=== PATIENT | female | born 1930 | race Caucasian/White ===

== ENCOUNTER 2017-07-15 12:29 | Inpatient (IN) | payer MEDICARE, BC ==
--- NOTE | 2017-07-15 15:48 | Rehab Evaluation ---
Patient Information - Patient Information Diagnosis: deconditioning d/t gastric ulcer and upper GI bleed Ordered Treatment: OT Evaluate and Treat Status: Initial Evaluation History: Detail (Pt admitted from [facility] to the [facility].) Past Medical/Surgical Hx: PAST MEDICAL/SURGICAL HISTORY Past Surgical History breast cancer knee kidney stents PMH - Respiratory Hx Respiratory Disorders No PMH - Cardiovascular Hx Cardiovascular Disorders Yes Hx Abnormal EKG Yes Hx Heart Attack Yes Hx Hypertension Yes Hx Hypotension Yes PMH - Neuro Hx Neurological Disorders Yes Hx Dementia Yes PMH - GI Hx Gastrointestinal Disorders No PMH - Hx Genitourinary Disorders No PMH - Endocrine Hx Endocrine Disorders No PMH - Musculoskeletal Hx Musculoskeletal Disorders Yes Hx Arthritis Yes PMH - Psych Hx Psychiatric Problems Yes Hx Depression Yes PMH - Hematology/Oncology Hx Hematology/Oncology Yes Disorders Hx Cancer Yes: breast Premorbid Status: Detail (Per pt and family, she lives with daughter and son in law in a 1 story house with 2 steps and syed handrailings at the entrance. She has a tub/shower combination with a bench, grab bar and hand held shower. She was able to shower and dress with supervision and was Ind with making her bed. She did have increased difficulty in the evenings due to "sundowners". Family is responsible for all home mgmt, meal prep, laundry activities. She was ambulatory without an assistive device.) Social History: Detail (Supportive family present during evaluation, daughters Berkely and Akilah and son in law Zaki.) Precautions: [place], Fall, Other (decreased cognition) - Time With Patient Total Time Spent With Patient (Min): 45 Treatment Procedures: Detail (OT eval moderate complexity) Subjective Information - Subjective Information Per Patient, Other (per family present during evaluation) Objective Data - Pain Pain Present: Yes (left knee pain, pt unable to rate pain using pain scale) - Mental Status Patient Orientation: Person (Pt oriented to self, month/day of birthday. Not oriented to year of birthday, age, location (states "hospital", not sure which one), month, season or year. Pt demonstrates confusion with dressing and mobility activities, requires moderate cueing.) - Visual Perception Appears within normal limits for therapeutic activities (Pt wears glasses at all times, pt had eyes closed throughout most of evaluation.) - ROM Within normal limits (Syed UE AROM functional for patients age and premorbid status.) - Strength/Tone Not within normal limits (Syed UE MMT 4-/5 throughout.) - Coordination Appears within normal limits for therapeutic activities (Syed UE tremors noted with activity, family reports this is new.) - Bed Mobility Needs Assist (Supine to sit with mod assist x 2.) - Transfers Needs Assist (Sit to stand with max assist x 2.) - Balance Balance Sitting: Fair Balance Standing: Poor - Sensation Intact - Gait Detail (Unable to formally assess due to left knee pain.) - ADL's/IADL's Detail (Pt able to doff gown with mod assist, don bra with max assist to hook and pull around body, verbal cues required to pull straps over shoulders. Donned shirt with set up. Nursing reports patient is incontinent.) Therapy Assessment - Therapy Assessment Detail (Pt presents with significant endurance impairments, decreased Ind with dressing/showering/toileting, decreased functional mobility and decreased cognition.) Problem List - Problem List Occupational Therapy Problem List: Detail (1. Decreased cognition needed for Ind self cares 2. Decreased functional mobility 3. Decreased Ind with dressing 4. Decreased Ind with showering 5. Decreased UE strength and overall endurance needed for Ind self cares.) Goals - Goals Occupational Therapy Goals: 1. Pt will be alert and oriented to place. 2. Pt will be Ind with total body dressing 3. Pt will complete showering with supervision and with set up 4. Pt will be Ind with bed mobility and ambulating in room to allow Ind with self cares 5. Pt will improve endurance to allow Ind with self cares. Prognosis - Prognosis Moderate Plan - Plan Occupational Therapy Plan: OT 2-4 days per week to address cognition, UE function, endurance, self care activities and functional mobility to allow safe return home with family.
[2017-07-15 16:10] LABS: BASO % 0.2 % (0-6); EOS % 0.3 % (0-6); GRAN % 74.3 % (47-80); HEMATOCRIT 27.3 % (35.0-47.0); HEMOGLOBIN 8.9 gm/dl (11.6-16.0); LYMPH % 16.4 % (16-45); MEAN CELL VOLUME 95.8 fl (81-97); MEAN CORPUSCULAR HEMOGLOBIN 31.2 pg (27-33); MEAN CORPUSCULAR HGB CONC 32.6 g/dl (32-36); MEAN PLATELET VOLUME 9.2 fl (7.4-10.4); MONO % 8.8 % (0-9); PLATELET COUNT 288 K/uL (130-400); RED BLOOD COUNT 2.85 M/uL (3.80-5.40); RED CELL DISTRIBUTION WIDTH 15.1 % (11.5-14.5); WHITE BLOOD COUNT W/O DIFF 15.3 K/uL (4.2-12.2)
[2017-07-15 16:31] LABS: ANION GAP 6.2 (7-16); C-REACTIVE PROTEIN 2.8 mg/dL (0.0-0.9); CARBON DIOXIDE 22.8 mmol/L (22-30); CREATININE 1.1 mg/dL (0.52-1.04)
[2017-07-15] MEDS: PANTOPRAZOLE SODIUM 40 MG TABLET PO SCH (16:43)
--- NOTE | 2017-07-15 17:01 | Rehab Evaluation ---
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 She has a tub/shower combination with a bench, grab bar and hand held shower. She was able to shower and dress with supervision and was Ind with making her bed. She did have increased difficulty in the evenings due to "sundowners". Family is responsible for all home mgmt, meal prep, laundry activities. She was ambulatory without an assistive device.) Social History: Detail (Supportive family present during evaluation, daughters Berkley and Akilah and son in law Zaki.) Precautions: [place], Fall, Other (decreased cognition) - Time With Patient Total Time Spent With Patient (Min): 30 Treatment Procedures: Detail (Initial Evaluation) Subjective Information - Subjective Information Per Patient (The patient had complaints of L knee pain with movement and when attempting to stand.) Objective Data - Mental Status Patient Orientation: Person (The patient did not know place, or year of . The patient knew month and date of birthday. The patient was able to indentify family members.) - ROM Not within normal limits (The patient's LE AROM was WNL except for L knee flexion and extension were painful and not fully assessed.) - Strength/Tone Not within normal limits ( LE strength: The patient's hip flexors bilaterally were 3/5, hip abductors and adductors were 4-/5, R knee flexors and extensors 4/ 5, L Not tested due to pain complaints, ankle musculature was 4+ to 5/5. Refer to OT note for UE strength.) - Bed Mobility Needs Assist (The patient required mod PA of 2 with supine to and from sit. The patient required maximal PA with scooting up in bed and with a seated scoot. ) - Transfers Needs Assist (Maximal PA of 2 with sit to stand transfer. Patient complained of L knee pain with standing.) - Balance Balance Sitting: Fair (Patient leaned back with activity ie : putting on her shirt.) Balance Standing: Poor - Gait Detail (The patient did not ambulate due to complaints of L knee pain.) - Special Tests Yes ( Inspection: The patient's L knee was warm to touch and exhibited edema. Family reported this was new.) Therapy Assessment - Therapy Assessment Detail (The patient required moderate to maximal assist for mobility and was unable to ambulate due to Knee pain. RN's notified physician of onset of knee pain. Pt is also running a temperature.) Problem List - Problem List Physical Therapy Problem List: Detail (1) Assistance with transfers and bed mobility. 2) nonambulatory 3) L knee pain 4) Cognitive status 5) sitting and standing balance deficits) Occupational Therapy Problem List: Detail (1. Decreased cognition needed for Ind self cares 2. Decreased functional mobility 3. Decreased Ind with dressing 4. Decreased Ind with showering 5. Decreased UE strength and overall endurance needed for Ind self cares.) Goals - Goals Physical Therapy Goals: 1) The patient will acheive bed mobility with minimal PA to supervision. 2) Supervision with sit to stand transfer. 3) Ambulation without device 30 to 50 feet with supervision of 1. 4) Functional sitting and standing balance ie: Patient will acheive ADL's with out LOB when sitting and ambulate household distances without LOB. Occupational Therapy Goals: 1. Pt will be alert and oriented to place. 2. Pt will be Ind with total body dressing 3. Pt will complete showering with supervision and with set up 4. Pt will be Ind with bed mobility and ambulating in room to allow Ind with self cares 5. Pt will improve endurance to allow Ind with self cares. Prognosis - Prognosis Good, Moderate Plan - Plan Physical Therapy Plan: PT M-F 1 to 2 times a day for bed mobility, transfer training, gait training and balance exercies. Occupational Therapy Plan: OT 2-4 days per week to address cognition, UE function, endurance, self care activities and functional mobility to allow safe return home with family.
[2017-07-15 17:42] LABS: SYNOVIAL FLUID APPEARANCE CLOUDY
[2017-07-15 17:52] LABS: SPECIMEN SOURCE LT KNEE ASPIRATION
[2017-07-15 17:53] LABS: GRAM STAIN NO ORGANISMS SEEN
[2017-07-15] MEDS: ACETAMINOPHEN 325 MG TAB PO PRN (17:58)
[2017-07-15 21:59] LABS: CRYSTALLOID MATERIAL Present
[2017-07-15] MEDS: DONEPEZIL HCL 5 MG TABLET PO SCH (22:08)
[2017-07-15] MEDS: LATANOPROST 0.005% OPTH SOLUTION 2.5ML BOTTLE OPTH SCH (22:09)
[2017-07-16] MEDS: PANTOPRAZOLE SODIUM 40 MG TABLET PO SCH ×2 (06:32→21:12)
[2017-07-16] MEDS: LEVOTHYROXINE SODIUM 75 MCG TABLET PO SCH (06:32)
[2017-07-16] MEDS: FERROUS SULFATE 325 MG TAB PO SCH (10:59)
[2017-07-16] MEDS: CIPROFLOXACIN HCL 500 MG TABLET PO SCH ×2 (10:59→21:12)
[2017-07-16] MEDS ORDERED: METHYLPREDNISOLONE 80MG/VIAL IM ONE (12:44)
--- NOTE | 2017-07-16 12:46 | Physical Therapy Tx Note ---
Physical Therapy Tx Note - Treatment Note Tolerated: Fair (Pt. tolerated bed exercises while supine with little difficulty , but could not stand to use commode due to knee pain (08/25).) Total Time Spent With Patient: 60 Physical Therapy Tx Note: Detail (Pt. performed the following exercises supine: B hip abduction 10x3, heel slides 10x3, ankle pumps 10x3. Pt. required moderate assist with bed mobility. Pt. attempted to stand for two trials with max assist for sit to stand transfer, and quickly requested to sit due to knee pain. Commode attempt unsuccessful due to knee pain. Pt. was unsuccessful with void attempt while supine with bed baires. Pt. required consistent verbal and tacticle cues to perform heel slides with appropriate LE, as well as position her UE and torso during bed mobility. Pt. was left supine with call light available, dressings changed, and nursing was notified of pt.'s status.) Physical Therapy Problem List: Detail (1) Assistance with transfers and bed mobility. 2) nonambulatory 3) L knee pain 4) Cognitive status 5) sitting and standing balance deficits) Physical Therapy Goals: 1) The patient will acheive bed mobility with minimal PA to supervision. 2) Supervision with sit to stand transfer. 3) Ambulation without device 30 to 50 feet with supervision of 1. 4) Functional sitting and standing balance ie: Patient will acheive ADL's with out LOB when sitting and ambulate household distances without LOB. Prognosis: Moderate Physical Therapy Plan: PT M-F 1 to 2 times a day for bed mobility, transfer training, gait training and balance exercies.
--- NOTE | 2017-07-16 12:52 | History & Physical ---
History of Present Illness - Date Date of Service for History & Physical: 07/16/17 - History of Present Illness Admitting Diagnosis: 1. deconditioning d/t gastric ulcer and upper GI bleed. fever. painful left knee. left knee effusion. UTI. dementia. DNR. Pseudogout of left knee. history of hypothyroidism History of Present Illness: Patient admitted to [facility] with melanotic stools and low hg 8.5 which dropped to 6.5 gm and she was given two units of blood and she had an EGD which showed a clean gastric ulcer in the antrum. Patient sent to [facility] for rehab. Upon arrival at [facility] she had a fever of 101. and a warm painful left knee with an effusion. Because of these finding on her initial assesment Blood was drawn and arthrocentisis was done on the left knee showing yellow cluody fluid 20 ml removed. UA also obtained by femicath and cluody and odiferous. General - Cognitive Patterns Orientation: Person, Recognizes Familiar Faces or Places Orientation Comment: unable to state year, month, president, season or what hospital she is loca - Communication Preferred Language?: [place] Child Support Agent Required: No Level of Education: College Comprehension Ability: Impairment Able to Read: No Able to Write: Yes Select best description of speech pattern: Clear Speech Ability to express ideas and wants: Sometimes Understood Understanding verbal content: Sometimes Understands - Psychosocial Well-Being Usual Living Arrangement: Children - Physical Functioning Activity Level: Up with assist x1 Turning: Self ad hao ROM Ability: Moves all extremities Assistive Devices: 2 Wheel Walker Ambulation Ability: Needs Assist Bed Mobility: Needs Assist Transfer Ability: Needs Assist Bathing Ability: Needs Assist Personal Hygiene: Needs Assist Dressing Ability: Needs Assist Eating (Feeding) Ability: Needs Assist Toileting Ability: Needs Assist Administer Own Medication: Needs Assist - Continence Bladder Pattern: Due to Void - Dental Status Unable to examine: No Broken or loosely fitting full or partial dentures: No No natural teeth or tooth fragment(s) (edentulous): No Abnormal mouth tissue (ulcers, masses, oral lesions, etc.): No Obvious or likely cavity or broken natural teeth: No Inflamed or bleeding gums or loose natural teeth: No Mouth/facial pain, discomfort or difficulty chewing: No - Nutrition Screening Poor oral intake > 1 week: No Unplanned weight loss in specified time frame: No Nutrition Support via tube feedings or parenteral nutrition: No Pressure Ulcer: No Significantly underweight define as BMI <18.5 kg/m2: No Albumin <2.5mg/dL: No Persistent nausea/vomiting/diarrhea >3 days: No Difficulty chewing/swallowing/mouth sores: No Admitting Diagnosis: Yes Nutrition Risk Score: Low Risk Review of Systems Constitutional: Reports: Fever Eyes: Reports: As per HPI. Denies: Eye discharge, Eye pain, Photophobia, Vision change ENT: Reports: As per HPI. Denies: Congestion, Dental pain, Ear pain, Epistaxis , Hearing loss, Throat pain Respiratory: Reports: As per HPI. Denies: Cough, Dyspnea, Hemoptysis, Stridor, Wheezes Cardiovascular: Reports: As per HPI. Denies: Arrhythmia, Chest pain, Dyspnea on exertion, Edema, Murmurs, Orthopnea, Palpitations, Paroxysmal nocturnal dyspnea, Rheumatic Fever, Syncope Endocrine: Reports: As per HPI. Denies: Fatigue, Heat or cold intolerance, Polydipsia, Polyuria Gastrointestinal: Reports: As per HPI. Denies: Abdominal pain, Constipation, Diarrhea, Hematemesis, Hematochezia, Melena, Nausea, Vomiting Genitourinary: Reports: As per HPI. Denies: Abnormal menses, Discharge, Dyspareunia, Dysuria, Frequency, Hematuria, Incontinence, Retention, Urgency Musculoskeletal: Reports: Gout (history of gout found when the right knee replaced by Dr. Harris years ago), Joint swelling. Denies: Arthralgia, Back pain , Neck pain Skin: Reports: As per HPI. Denies: Bruising, Change in color, Change in hair/ nails, Lesions, Pruritus, Rash Neurological: Reports: As per HPI, Other (dementia). Denies: Abnormal gait, Confusion, Headache, Numbness, Paresthesias, Seizure, Tingling, Tremors, Vertigo , Weakness Psychiatric: Reports: As per HPI. Denies: Anxiety, Auditory hallucinations, Depression, Homicidal thoughts, Suicidal thoughts, Visual hallucinations Hematological/Lymphatic: Reports: As per HPI. Denies: Anemia, Blood Clots, Easy bleeding, Easy bruising, Swollen glands Past Medical History - SOCIAL HISTORY Smoking Status: Former smoker - SURGICAL HISTORY Past Surgical History: breast cancer. knee. 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% - NEURO Hx Neuro Disorders: Yes Hx Dementia: Yes - GI Hx GI Disorders: No - Hx Genitourinary Disorders: No Comment:: renal stents - ENDOCRINE Hx Endocrine Disorders: No Hx Thyroid Disease: Yes (low) - MUSCULOSKELETAL Hx Musculoskeletal Disorders: Yes Hx Arthritis: Yes - PSYCH Hx Psych Problems: Yes Hx Depression: Yes - HEMATOLOGY/ONCOLOGY Hx Hematology/Oncology Disorders: Yes Hx Cancer: Yes (breast) Family Medical History Any Significant Family History?: Yes Hx Cancer: Brother/Sister Hx Dementia: Mother H&P Meds/Allergies - Allergies Allergies: Allergies Allergy/AdvReac Type Severity Reaction Status Date / Time Penicillins Allergy HIVES Verified 11/12/14 19:11 - Home Medications Home Medications Medication Instructions Recorded Confirmed Last Taken Donepezil HCl [Aricept] 23 mg PO QHS 07/15/17 07/15/17 Unknown Ferrous Sulfate 325 mg PO DAILY 07/15/17 07/15/17 Unknown Levothyroxine Sodium [Synthroid] 75 mcg PO DAILYTHY 07/15/17 07/15/17 Unknown Pantoprazole Sodium 40 mg PO BIDAC 07/15/17 07/15/17 Unknown Travoprost Opth [Travatan Z Opth] 1 drop OPTH QHS 07/15/17 07/15/17 Unknown - Active Medications Active Medications: Current Medications Acetaminophen (Tylenol 325mg) 650 mg PO Q6H PRN PRN Reason: TEMP/PAIN Last Admin: 07/15/17 17:58 Dose: 650 mg Ciprofloxacin (Cipro) 500 mg PO BIDFLUOR [facility] Last Admin: 07/16/17 10:59 Dose: 500 mg Donepezil HCl (Aricept) 5 mg PO QHS [facility] Last Admin: 07/15/17 22:08 Dose: 5 mg Ferrous Sulfate (Iron) 325 mg PO DAILY [facility] Last Admin: 07/16/17 10:59 Dose: 325 mg Latanoprost (Xalatan) 1 drop OPTH QHS [facility] Last Admin: 07/15/17 22:09 Dose: 1 drop Levothyroxine Sodium (Synthroid) 75 mcg PO DAILYTHY [facility] Last Admin: 07/16/17 06:32 Dose: 75 mcg Methylprednisolone Acetate (Depo-Medrol) 80 mg IM NOW ONE Stop: 07/16/17 12:45 Pantoprazole Sodium (Protonix) 40 mg PO BIDAC [facility] Last Admin: 07/16/17 06:32 Dose: 40 mg Physical Exam - Vital Signs Vital Signs: Vital Signs - Last 24 Hrs Temp Pulse Pulse Resp BP BP Pulse Ox 07/16/17 11:16 99.7 F H 81 18 154/69 97 07/16/17 09:22 98.8 F 156/73 07/16/17 06:00 98.8 F 84 16 156/73 95 07/15/17 22:00 98.0 F 83 16 155/73 95 07/15/17 15:10 98.9 F 07/15/17 14:10 101.3 F H 89 139/61 95 - General General Appearance: Alert, Cooperative, No acute distress - Head Head exam: Normal inspection - Eye Eye exam: Normal appearance, PERRL - ENT ENT exam: Normal exam, Mucous membranes moist, Normal external ear exam, Normal orophraynx, TM's normal bilaterally Ear exam: Normal external inspection. negative: External canal tenderness Nasal Exam: Normal inspection. negative: Discharge, Sinus tenderness Mouth exam: Normal external inspection, Tongue normal Teeth exam: Normal inspection. negative: Dental caries Throat exam: Normal inspection. negative: Tonsillar erythema, Tonsillar exudate - Neck Neck exam: Normal inspection, Full ROM. negative: Tenderness - Respiratory Respiratory exam: Normal lung sounds bilaterally. negative: Respiratory distress - Cardiovascular Cardiovascular Exam: Regular rate, Normal rhythm, Normal heart sounds - GI/Abdominal GI/Abdominal exam: Soft, Normal bowel sounds. negative: Tenderness - exam: Deferred - Extremities Extremities exam: Joint swelling (left knee,warm but not red), Tenderness (left knee) - Back Back exam: Reports: Normal inspection, Full ROM. Denies: Muscle spasm, Rash noted, Tenderness - Neurological Neurological exam: Abnormal gait (because of left knee pain) - Psychiatric Psychiatric exam: Normal affect, Normal mood - Skin Skin exam: Dry, Intact, Normal color, Warm, Other (left knee warm and painful with motion) H&P Results - Labs Result Diagrams: 07/15/17 15:50 07/15/17 15:50 Labs Last 24 Hours: Laboratory Results - last 24 hr 07/15/17 07/15/17 07/15/17 15:50 15:50 17:25 WBC 15.3 H RBC 2.85 L Hgb 8.9 L Hct 27.3 L MCV 95.8 MCH 31.2 MCHC 32.6 RDW 15.1 H Plt Count 288 MPV 9.2 Gran % 74.3 Lymphocytes % 16.4 Monocytes % 8.8 Eosinophils % 0.3 Basophils % 0.2 Sodium 136 Potassium 3.9 Chloride 107 Carbon Dioxide 22.8 Anion Gap 6.2 L BUN 18 H Creatinine 1.1 H Estimated GFR 50 Random Glucose 110 Calcium 8.5 C-Reactive Protein 2.8 H Body Fluid Site Synovial Source Synovial Color Synovial Appearance Cloudy Synovial WBC 32920.0 H Synovial RBC 27.0 Synovial Neutrophils 90.0 Synovial Lymphocytes 10.0 Synovial Monocytes 0.0 Synovial Crystals Gram Stain Aerobic Organism Source 07/15/17 07/15/17 17:25 17:25 WBC RBC Hgb Hct MCV MCH MCHC RDW Plt Count MPV Gran % Lymphocytes % Monocytes % Eosinophils % Basophils % Sodium Potassium Chloride Carbon Dioxide Anion Gap BUN Creatinine Estimated GFR Random Glucose Calcium C-Reactive Protein Body Fluid Site Lt knee Synovial Source Synovial Color Synovial Appearance Synovial WBC Synovial RBC Synovial Neutrophils Synovial Lymphocytes Synovial Monocytes Synovial Crystals Present Gram Stain No organisms seen Aerobic Organism Source Lt knee aspiration Discharge Potential - Discharge Needs Community Services Used Prior to Admission: Transportation Patient Discharge Plan Description: Return Home Community Services Needed at Discharge: Home Health Aide, Home Health Nurse, Occupational Therapy, Physical Therapy, Transportation, [facility] to [facility] Plan - Swing Bed Certification Initial Certification Due: 07/15/17 14 Day Re-Cert Due: 07/29/17 44 Day Re-Cert Due: 08/28/17 74 Day Re-Cert Due: 09/27/17 - Detailed Diagnosis and Plan (1) Physical deconditioning Current Visit: Yes Status: Acute Base Code: R53.81 - OTHER MALAISE Priority: High (2) Pseudogout Current Visit: Yes Status: Acute Base Code: M11.20 - OTHER CHONDROCALCINOSIS , UNSPECIFIED SITE Narrative Support Text: left knee Priority: High Onset Date: ~07/15/17 (3) UTI (urinary tract infection) Current Visit: Yes Status: Acute Base Code: N39.0 - URINARY TRACT INFECTION , SITE NOT SPECIFIED (4) Hypothyroidism Current Visit: Yes Status: Acute Base Code: E03.9 - HYPOTHYROIDISM, UNSPECIFIED (5) Dementia Current Visit: Yes Status: Acute Base Code: F03.90 - UNSPECIFIED DEMENTIA WITHOUT BEHAVIORAL DISTURBANCE (6) DNR (do not resuscitate) Current Visit: Yes Status: Acute Base Code: Z66 - DO NOT RESUSCITATE (7) Gastrointestinal bleeding, upper Current Visit: Yes Status: Acute Base Code: K92.2 - GASTROINTESTINAL HEMORRHAGE, UNSPECIFIED (8) Gastric ulcer Current Visit: Yes Status: Acute Base Code: K25.9 - GASTRIC ULCER, UNSP ACUTE OR CHRONIC, W/O HEMOR OR PERF
--- NOTE | 2017-07-16 15:58 | Physical Therapy Tx Note ---
Physical Therapy Tx Note - Treatment Note Tolerated: Good (Pt. maintained pain report of 6/10 throughout tx session. Pt. received injection at L knee earlier today.) Total Time Spent With Patient: 45 Physical Therapy Tx Note: Detail (Pt. performed seated hip marches, LAQ, ankle pumps, hip abduction and adduction 10x. Pt. required moderate assistance x1 with bed mobility, moderate assistance x2 with ambulation from bed to toilet. Pt. required min assist x1 with stand to sit transfer to toilet. Pt. was unsuccessful with void attempt. Pt. was left supine with call light available.) Physical Therapy Problem List: Detail (1) Assistance with transfers and bed mobility. 2) nonambulatory 3) L knee pain 4) Cognitive status 5) sitting and standing balance deficits) Physical Therapy Goals: 1) The patient will acheive bed mobility with minimal PA to supervision. 2) Supervision with sit to stand transfer. 3) Ambulation without device 30 to 50 feet with supervision of 1. 4) Functional sitting and standing balance ie: Patient will acheive ADL's with out LOB when sitting and ambulate household distances without LOB. Prognosis: Good Physical Therapy Plan: PT M-F 1 to 2 times a day for bed mobility, transfer training, gait training and balance exercies.
[2017-07-16 17:12] LABS: URINE APPEARANCE CLEAR; URINE BILIRUBIN NEGATIVE (NEGATIVE); URINE BLOOD NEGATIVE (NEGATIVE); URINE COLOR YELLOW; URINE GLUCOSE (UA) NEGATIVE (NEGATIVE); URINE KETONE NEGATIVE (NEGATIVE); URINE LEUKOCYTE ESTERASE TRACE (NEGATIVE); URINE NITRITE NEGATIVE (NEGATIVE); URINE UROBILINOGEN 0.2 E.U./dL (0.20 - 1.00)
[2017-07-16 17:19] LABS: URINE AMORPHOUS SEDIMENT 1+; URINE RBC NONE SEEN (NONE SEEN); URINE WBC 0 - 2 (0-2/hpf)
[2017-07-16] MEDS: LATANOPROST 0.005% OPTH SOLUTION 2.5ML BOTTLE OPTH SCH (21:12)
[2017-07-16] MEDS: DONEPEZIL HCL 5 MG TABLET PO SCH (21:13)
[2017-07-17] MEDS: PANTOPRAZOLE SODIUM 40 MG TABLET PO SCH ×2 (05:59→17:42)
[2017-07-17] MEDS: LEVOTHYROXINE SODIUM 75 MCG TABLET PO SCH (05:59)
[2017-07-17] MEDS: CIPROFLOXACIN HCL 500 MG TABLET PO SCH ×2 (05:59→17:43)
--- NOTE | 2017-07-17 11:20 | Occupational Therapy Tx Note ---
Occupational Therapy Tx Note - Treatment Note Tolerated: Fair Total Time Spent With Patient: 50 (ADL) Occupational Therapy Treatment Note: Detail (S: Pt up in chair, cooperative. O : Pt oriented to self, not to place. Pt doffed robe and PJ top with verbal cues. Applied deoderant Indly, donned shirt Indly, donned pants with verbal cues and mod assist for left leg, doffed slippers Indly, donned right sock Indly , left sock with max assist. Sit to stand to pull up pants with mod assist to walker, pants pulled up with max assist including zipper and button. Pt amb 15 feet to sink with walker and min assist. Sat at sink and completed oral hygiene with min assist and verbal cues, washed face Indly. Sit to stand with mod assist and amb back to chair with walker and min assist. Stand to sit with mod assist and verbal cues. A: Left knee pain and stiffness continue, limiting self care activities. Confusion continues.) Occupational Therapy Problem List: Detail (1. Decreased cognition needed for Ind self cares 2. Decreased functional mobility 3. Decreased Ind with dressing 4. Decreased Ind with showering 5. Decreased UE strength and overall endurance needed for Ind self cares.) Occupational Therapy Goals: 1. Pt will be alert and oriented to place. 2. Pt will be Ind with total body dressing 3. Pt will complete showering with supervision and with set up 4. Pt will be Ind with bed mobility and ambulating in room to allow Ind with self cares 5. Pt will improve endurance to allow Ind with self cares. Prognosis: Moderate Occupational Therapy Plan: OT 2-4 days per week to address cognition, UE function, endurance, self care activities and functional mobility to allow safe return home with family.
[2017-07-17] MEDS: FERROUS SULFATE 325 MG TAB PO SCH (12:18)
--- NOTE | 2017-07-17 14:53 | Physical Therapy Tx Note ---
Physical Therapy Tx Note - Treatment Note Tolerated: Good Total Time Spent With Patient: 20 Physical Therapy Tx Note: Detail (The patient was in bed when PT arrived but was awake. The patient required mod PA of 2 for supine to and from sit transfer. The patient required mod. PA of 1 with sit to stand. The patient ambulated with standard walker with CG of 1 a distance of 60 feet x 1. The patient returned to chair and call light was within reach with table tray placed in tront of patient. The patient intially complained of L knee pain with ambulation and did not want to bear weight. Once she began ambulating the patient beared weight on L LE without difficulty.) Physical Therapy Problem List: Detail (1) Assistance with transfers and bed mobility. 2) nonambulatory 3) L knee pain 4) Cognitive status 5) sitting and standing balance deficits) Physical Therapy Goals: 1) The patient will acheive bed mobility with minimal PA to supervision. 2) Supervision with sit to stand transfer. 3) Ambulation without device 30 to 50 feet with supervision of 1. 4) Functional sitting and standing balance ie: Patient will acheive ADL's with out LOB when sitting and ambulate household distances without LOB. Physical Therapy Plan: PT M-F 1 to 2 times a day for bed mobility, transfer training, gait training and balance exercies.
[2017-07-17] MEDS: DONEPEZIL HCL 5 MG TABLET PO SCH (23:17)
[2017-07-17] MEDS: LATANOPROST 0.005% OPTH SOLUTION 2.5ML BOTTLE OPTH SCH (23:18)
[2017-07-18] MEDS: ACETAMINOPHEN 325 MG TAB PO PRN (02:14)
[2017-07-18] MEDS: CIPROFLOXACIN HCL 500 MG TABLET PO SCH ×2 (07:05→17:49)
[2017-07-18] MEDS: PANTOPRAZOLE SODIUM 40 MG TABLET PO SCH ×2 (07:05→16:40)
[2017-07-18] MEDS: LEVOTHYROXINE SODIUM 75 MCG TABLET PO SCH (07:05)
[2017-07-18] MEDS: FERROUS SULFATE 325 MG TAB PO SCH (10:02)
[2017-07-18] MEDS: LATANOPROST 0.005% OPTH SOLUTION 2.5ML BOTTLE OPTH SCH (21:35)
[2017-07-18] MEDS: DONEPEZIL HCL 5 MG TABLET PO SCH (21:35)
[2017-07-19] MEDS: ACETAMINOPHEN 325 MG TAB PO PRN (07:01)
[2017-07-19] MEDS: PANTOPRAZOLE SODIUM 40 MG TABLET PO SCH ×2 (07:01→17:04)
[2017-07-19] MEDS: CIPROFLOXACIN HCL 500 MG TABLET PO SCH ×2 (07:01→17:04)
[2017-07-19] MEDS: LEVOTHYROXINE SODIUM 75 MCG TABLET PO SCH (07:01)
[2017-07-19] MEDS: FERROUS SULFATE 325 MG TAB PO SCH (11:03)
[2017-07-19] MEDS: DONEPEZIL HCL 5 MG TABLET PO SCH (21:35)
[2017-07-19] MEDS: LATANOPROST 0.005% OPTH SOLUTION 2.5ML BOTTLE OPTH SCH (21:35)
[2017-07-20] MEDS: PANTOPRAZOLE SODIUM 40 MG TABLET PO SCH ×2 (06:15→17:04)
[2017-07-20] MEDS: CIPROFLOXACIN HCL 500 MG TABLET PO SCH ×2 (06:15→18:27)
[2017-07-20] MEDS: LEVOTHYROXINE SODIUM 75 MCG TABLET PO SCH (06:15)
[2017-07-20] MEDS: FERROUS SULFATE 325 MG TAB PO SCH (09:45)
[2017-07-20] MEDS: ACETAMINOPHEN 325 MG TAB PO PRN (09:45)
[2017-07-20] MEDS: LATANOPROST 0.005% OPTH SOLUTION 2.5ML BOTTLE OPTH SCH (21:41)
[2017-07-20] MEDS: DONEPEZIL HCL 5 MG TABLET PO SCH (21:41)
[2017-07-21] MEDS: CIPROFLOXACIN HCL 500 MG TABLET PO SCH ×2 (06:51→18:23)
[2017-07-21] MEDS: PANTOPRAZOLE SODIUM 40 MG TABLET PO SCH ×2 (06:51→18:23)
[2017-07-21] MEDS: LEVOTHYROXINE SODIUM 75 MCG TABLET PO SCH (06:51)
[2017-07-21 09:07] LABS: BASO % 0.5 % (0-6); EOS % 1.6 % (0-6); GRAN % 58.1 % (47-80); HEMATOCRIT 28.3 % (35.0-47.0); HEMOGLOBIN 8.9 gm/dl (11.6-16.0); LYMPH % 30.5 % (16-45); MEAN CELL VOLUME 97.6 fl (81-97); MEAN CORPUSCULAR HGB CONC 31.4 g/dl (32-36); MEAN PLATELET VOLUME 8.8 fl (7.4-10.4); MONO % 9.3 % (0-9); PLATELET COUNT 557 K/uL (130-400); RED CELL DISTRIBUTION WIDTH 14.5 % (11.5-14.5); WHITE BLOOD COUNT W/O DIFF 8.6 K/uL (4.2-12.2)
[2017-07-21 09:12] LABS: MEAN CORPUSCULAR HEMOGLOBIN 30.6 pg (27-33)
[2017-07-21] MEDS: FERROUS SULFATE 325 MG TAB PO SCH (10:50)
--- NOTE | 2017-07-21 10:59 | Occupational Therapy Tx Note ---
Occupational Therapy Tx Note - Treatment Note Tolerated: Fair Total Time Spent With Patient: 50 (ADL) Occupational Therapy Treatment Note: Detail (S: Pt resting in chair, agreeable to shower. O: Sit to stand with walker and min assist. Amb to toilet with walker and CG assist. Toileted with verbal cues to pull pants down, verbal cues with toileting hygiene. Doffed PJ bottoms and briefs with verbal cues. Sit to stand with verbal cues and walker, amb to shower bench with walker and CG assist. Pt doffed PJ top, bra, socks and slippers with verbal cues. Pt completed showering in sitting and standing with continuous verbal cueing and CG assist for sit to stand while washing joey area/buttocks. Pt dried self with verbal cues. Donned bra, shirt, briefs, pants and socks with verbal cues. Donned sock type slippers with max assist as pt was very fatigued. Sit to stand with verbal cues and amb back to chair with walker and CG assist. A: Pt requires ongoing verbal cues to remain on task, min/CG assist with dressing and showering, min/CG assist for sit to stand and ambulation. Pt very fatigued with ADL activity. Confusion continues.) Occupational Therapy Problem List: Detail (1. Decreased cognition needed for Ind self cares 2. Decreased functional mobility 3. Decreased Ind with dressing 4. Decreased Ind with showering 5. Decreased UE strength and overall endurance needed for Ind self cares.) Occupational Therapy Goals: 1. Pt will be alert and oriented to place. 2. Pt will be Ind with total body dressing 3. Pt will complete showering with supervision and with set up 4. Pt will be Ind with bed mobility and ambulating in room to allow Ind with self cares 5. Pt will improve endurance to allow Ind with self cares. Prognosis: Moderate Occupational Therapy Plan: OT 2-4 days per week to address cognition, UE function, endurance, self care activities and functional mobility to allow safe return home with family.
[2017-07-21] MEDS ORDERED: DOCUSATE SODIUM 100 MG CAPSULE PO PRN (11:50)
[2017-07-21] MEDS ORDERED: BISACODYL 5 MG TABLET PO PRN (11:53)
--- NOTE | 2017-07-21 14:26 | Physical Therapy Tx Note ---
Physical Therapy Tx Note - Treatment Note Tolerated: Good Total Time Spent With Patient: 25 Physical Therapy Tx Note: Detail (Patient states doing good this today. Patient transferred sit to stand min assist x1. Patient ambulated 150 feet with wheeled walker CGA x1. Patient transferred stand to sit CGA x1. Patient performed the following exercises x10 reps each: seated marching, LAQ, seated heel raises, seated toe raises, hamstring curls with red theraband, seated isometric hip adduction, seated hip abduction with red theraband, rowing with yellow theraband, shoulder extension with yellow theraband, shoulder horizontal abduction with yellow theraband, and bicep curls with yellow theraband. Patient transferred sit to stand min assist x2. Patient ambulated 5 feet with wheeled walker CGA x1. Patient transferred stand to sit CGA x1. Patient tolerated treatment well. Patient displays decreased strength and endurance with seated hip abduction with theraband, hamstring curls with theraband, shoulder extension with theraband, bicep curls with theraband, and shoulder horizontal abduction. Patient reports being tired after treatment. Patient was left seated in chair with call light within reach.) Physical Therapy Problem List: Detail (1) Assistance with transfers and bed mobility. 2) nonambulatory 3) L knee pain 4) Cognitive status 5) sitting and standing balance deficits) Physical Therapy Goals: 1) The patient will acheive bed mobility with minimal PA to supervision. 2) Supervision with sit to stand transfer. 3) Ambulation without device 30 to 50 feet with supervision of 1. 4) Functional sitting and standing balance ie: Patient will acheive ADL's with out LOB when sitting and ambulate household distances without LOB. Prognosis: Good Physical Therapy Plan: PT M-F 1 to 2 times a day for bed mobility, transfer training, gait training and balance exercies.
[2017-07-21] MEDS: DONEPEZIL HCL 5 MG TABLET PO SCH (22:28)
[2017-07-21] MEDS: LATANOPROST 0.005% OPTH SOLUTION 2.5ML BOTTLE OPTH SCH (22:29)
[2017-07-22] MEDS: CIPROFLOXACIN HCL 500 MG TABLET PO SCH ×2 (06:38→18:02)
[2017-07-22] MEDS: LEVOTHYROXINE SODIUM 75 MCG TABLET PO SCH (06:38)
[2017-07-22] MEDS: PANTOPRAZOLE SODIUM 40 MG TABLET PO SCH ×2 (06:38→17:10)
[2017-07-22] MEDS: ACETAMINOPHEN 325 MG TAB PO PRN (09:43)
[2017-07-22] MEDS: FERROUS SULFATE 325 MG TAB PO SCH (09:43)
--- NOTE | 2017-07-22 09:53 | Occupational Therapy Tx Note ---
Occupational Therapy Tx Note - Treatment Note Tolerated: Good Total Time Spent With Patient: 20 (ADL) Occupational Therapy Treatment Note: Detail (S: Pt in bed but ready to get up. O: Supine to sit Indly. Sit to stand and amb to bathroom with SBA and standard walker. Toileted Indly. Pt doffed gown with assist to untie, donned shirt Indly. Doffed soiled brief with verbal cues, donned clean brief and jeans Indly with SBA to stand and hand assembler for puller over hips. Pt reports she normally lies in bed to button jeans and was able to do so Indly with OT. Pt sit to stand and amb to chair with CG assist without walker. A: Verbal cues needed for dressing, Ind with bed mobility, CG assist with ambulation) Occupational Therapy Problem List: Detail (1. Decreased cognition needed for Ind self cares 2. Decreased functional mobility 3. Decreased Ind with dressing 4. Decreased Ind with showering 5. Decreased UE strength and overall endurance needed for Ind self cares.) Occupational Therapy Goals: 1. Pt will be alert and oriented to place. 2. Pt will be Ind with total body dressing 3. Pt will complete showering with supervision and with set up 4. Pt will be Ind with bed mobility and ambulating in room to allow Ind with self cares 5. Pt will improve endurance to allow Ind with self cares. Prognosis: Good Occupational Therapy Plan: OT 2-4 days per week to address cognition, UE function, endurance, self care activities and functional mobility to allow safe return home with family.
--- NOTE | 2017-07-22 13:52 | Physical Therapy Tx Note ---
Physical Therapy Tx Note - Treatment Note Tolerated: Good Total Time Spent With Patient: 15 Physical Therapy Tx Note: Detail (The patient was sleeping in chair when PT arrived. The patient ambulated with CG , hand hold of 1 for safety without device 50 feet x 1. The patient was hesistant in ambulating without device. Occasional stagger steps were noted. The patient acheived sit to and from stand without use of hands x 2 and LAQ L LE x 10 reps without complaints of pain. The patient completed standing balance exercises including : standing and looking over shoulders, standing with varying bases of support, standing marching. The patient was fatigued after 15 minutes of physical activity. Patient's call light was within reach and tray table was placed in front of patient with ensure pudding. The patient declined pudding. The patient was dozing off when PT left.) Physical Therapy Problem List: Detail (1) Assistance with transfers and bed mobility. 2) nonambulatory 3) L knee pain 4) Cognitive status 5) sitting and standing balance deficits) Physical Therapy Goals: 1) The patient will acheive bed mobility with minimal PA to supervision. 2) Supervision with sit to stand transfer. 3) Ambulation without device 30 to 50 feet with supervision of 1. 4) Functional sitting and standing balance ie: Patient will acheive ADL's with out LOB when sitting and ambulate household distances without LOB. Physical Therapy Plan: PT M-F 1 to 2 times a day for bed mobility, transfer training, gait training and balance exercies.
[2017-07-22] MEDS: DONEPEZIL HCL 5 MG TABLET PO SCH (21:10)
[2017-07-22] MEDS: LATANOPROST 0.005% OPTH SOLUTION 2.5ML BOTTLE OPTH SCH (21:10)
[2017-07-23] MEDS: LEVOTHYROXINE SODIUM 75 MCG TABLET PO SCH (06:36)
[2017-07-23] MEDS: PANTOPRAZOLE SODIUM 40 MG TABLET PO SCH ×2 (06:36→17:16)
[2017-07-23] MEDS: CIPROFLOXACIN HCL 500 MG TABLET PO SCH ×2 (06:36→17:16)
[2017-07-23 07:23] LABS: ALB/GLOB RATIO 1.1 (1.1-1.8); ALBUMIN 3.5 gm/dL (3.5-5.0); ANION GAP 9.6 (7-16); BILIRUBIN,TOTAL 0.59 mg/dL (0.2-1.3); CARBON DIOXIDE 25.4 mmol/L (22-30); CREATININE 1.2 mg/dL (0.52-1.04); TOTAL PROTEIN 6.6 gm/dL (6.3-8.2)
[2017-07-23 07:34] LABS: LDL CHOLESTEROL/MEASURED 83.9 mg/dL (0-100)
[2017-07-23] MEDS: FERROUS SULFATE 325 MG TAB PO SCH (10:17)
--- NOTE | 2017-07-23 11:46 | Physical Therapy Tx Note ---
Physical Therapy Tx Note - Treatment Note Tolerated: Good Total Time Spent With Patient: 20 Physical Therapy Tx Note: Detail (Pt up in recliner w/dtr present, awake/alert, cooperative for therapy. Sit/stand from recliner w/SBA, ambulated out in hallway to PACU doors and returned to recliner, w/RN SUPPORT SERVICES/CGA (about [address], 116 feet total). Mildly unsteady when standing unsupported. Performed 10 reps each B of marching, LAQ, hamstring curls w/yellow t-band, hip add w/ball, and 5 reps of hip abd w/yellow t-band. Repositioned in recliner w/alarmed seat ; two daughters present in room. Call light in reach.) Physical Therapy Problem List: Detail (1) Assistance with transfers and bed mobility. 2) nonambulatory 3) L knee pain 4) Cognitive status 5) sitting and standing balance deficits) Physical Therapy Goals: 1) The patient will acheive bed mobility with minimal PA to supervision. 2) Supervision with sit to stand transfer. 3) Ambulation without device 30 to 50 feet with supervision of 1. 4) Functional sitting and standing balance ie: Patient will acheive ADL's with out LOB when sitting and ambulate household distances without LOB. Prognosis: Good Physical Therapy Plan: PT M-F 1 to 2 times a day for bed mobility, transfer training, gait training and balance exercies.
--- NOTE | 2017-07-23 14:33 | Physical Therapy Tx Note ---
Physical Therapy Tx Note - Treatment Note Tolerated: Good Total Time Spent With Patient: 30 Physical Therapy Tx Note: Detail (Patient states doing good this afternoon. Patient transferred sit to and from stand CGA x1. Patient ambulated 208 feet CGA x1. Patient performed the following exercises x15 reps each: seated marching, LAQ, hamstring curls with yellow theraband, seated hip abduction with yellow theraband, and seated hip abduction with ball. Patient transferred sit to and from stand CGA x1. Patient performed the following exercises x10 reps each: standing marching, standing heel raises, standing toe raises, shoulder flexion with yellow theraband, and bicep curls with yellow theraband. Patient tolerated treatment well. Patient displays decreased strength and endurance with standing marching, standing toe raises, standing heel raises, bicep curls, and shoulder flexion. Patient was left reclined in chair with chair alarm on and call light within reach.) Physical Therapy Problem List: Detail (1) Assistance with transfers and bed mobility. 2) nonambulatory 3) L knee pain 4) Cognitive status 5) sitting and standing balance deficits) Physical Therapy Goals: 1) The patient will acheive bed mobility with minimal PA to supervision. 2) Supervision with sit to stand transfer. 3) Ambulation without device 30 to 50 feet with supervision of 1. 4) Functional sitting and standing balance ie: Patient will acheive ADL's with out LOB when sitting and ambulate household distances without LOB. Prognosis: Good Physical Therapy Plan: PT M-F 1 to 2 times a day for bed mobility, transfer training, gait training and balance exercies.
[2017-07-23] MEDS: LATANOPROST 0.005% OPTH SOLUTION 2.5ML BOTTLE OPTH SCH (22:48)
[2017-07-23] MEDS: DONEPEZIL HCL 5 MG TABLET PO SCH (22:48)
[2017-07-24] MEDS: LEVOTHYROXINE SODIUM 75 MCG TABLET PO SCH (06:39)
[2017-07-24] MEDS: CIPROFLOXACIN HCL 500 MG TABLET PO SCH (06:39)
[2017-07-24] MEDS: PANTOPRAZOLE SODIUM 40 MG TABLET PO SCH ×2 (06:39→16:46)
--- NOTE | 2017-07-24 10:14 | Physical Therapy Tx Note ---
Physical Therapy Tx Note - Treatment Note Tolerated: Fair Total Time Spent With Patient: 20 Physical Therapy Tx Note: Detail (Patient was sleeping in chair when KNITTING DEMONSTRATOR arrived. Patient transferred sit to and from stand CGA x1. Patient ambulated 258 feet CGA x1. Patient performed the following exercises x10-15 reps each: seated marching, seated hamstring curls with yellow theraband, LAQ, seated hip abduction with yellow theraband, standing heel raises, and standing marching. Patient displays decreased balance with ambulation. Patient required cues to stay on task. Patient unable to continue exercises due to fatigue. Patient was left reclined in chair with call light within reach.) Physical Therapy Problem List: Detail (1) Assistance with transfers and bed mobility. 2) nonambulatory 3) L knee pain 4) Cognitive status 5) sitting and standing balance deficits) Physical Therapy Goals: 1) The patient will acheive bed mobility with minimal PA to supervision. 2) Supervision with sit to stand transfer. 3) Ambulation without device 30 to 50 feet with supervision of 1. 4) Functional sitting and standing balance ie: Patient will acheive ADL's with out LOB when sitting and ambulate household distances without LOB. Prognosis: Good Physical Therapy Plan: PT M-F 1 to 2 times a day for bed mobility, transfer training, gait training and balance exercies.
[2017-07-24] MEDS: FERROUS SULFATE 325 MG TAB PO SCH (10:38)
--- NOTE | 2017-07-24 16:25 | Physical Therapy Tx Note ---
Physical Therapy Tx Note - Treatment Note Tolerated: Poor Total Time Spent With Patient: 15 Physical Therapy Tx Note: Detail (The patient was in recliner sleeping. The patient was difficult to arrouse. The patient required minimal PA of one with sit to stand due to fatigue. The patient ambulated without a device 10 feet x 2 with CG and hand hold. The patient ambulated with short shuffling steps. The patient completed the following exercises with maximal verbal cues to complete and with eyes closed: seated ball squeezes, hip abduction with yellow band, marching and LAQ x10 reps. The patient also completed with eyes open standing balance exercises including standing with varying bases of support with perturbations. The patient was returned to recliner with chair alarm set. The patient only toerated 15 minutes of PT due to increased fatigue and sleepiness.) Physical Therapy Problem List: Detail (1) Assistance with transfers and bed mobility. 2) nonambulatory 3) L knee pain 4) Cognitive status 5) sitting and standing balance deficits) Physical Therapy Goals: 1) The patient will acheive bed mobility with minimal PA to supervision. 2) Supervision with sit to stand transfer. 3) Ambulation without device 30 to 50 feet with supervision of 1. 4) Functional sitting and standing balance ie: Patient will acheive ADL's with out LOB when sitting and ambulate household distances without LOB. Physical Therapy Plan: PT M-F 1 to 2 times a day for bed mobility, transfer training, gait training and balance exercies.
[2017-07-24] MEDS: DONEPEZIL HCL 5 MG TABLET PO SCH (23:37)
[2017-07-24] MEDS: LATANOPROST 0.005% OPTH SOLUTION 2.5ML BOTTLE OPTH SCH (23:37)
[2017-07-25] MEDS: LEVOTHYROXINE SODIUM 75 MCG TABLET PO SCH (06:40)
[2017-07-25] MEDS: PANTOPRAZOLE SODIUM 40 MG TABLET PO SCH ×2 (06:40→19:23)
[2017-07-25] MEDS: FERROUS SULFATE 325 MG TAB PO SCH (10:13)
[2017-07-25] MEDS: LATANOPROST 0.005% OPTH SOLUTION 2.5ML BOTTLE OPTH SCH ×2 (20:34→22:00)
[2017-07-25] MEDS: DONEPEZIL HCL 5 MG TABLET PO SCH ×2 (20:34→22:00)
[2017-07-26] MEDS: LEVOTHYROXINE SODIUM 75 MCG TABLET PO SCH (06:32)
[2017-07-26] MEDS: PANTOPRAZOLE SODIUM 40 MG TABLET PO SCH ×2 (06:32→19:27)
[2017-07-26] MEDS: FERROUS SULFATE 325 MG TAB PO SCH (09:31)
[2017-07-26 15:05] LABS: URINE APPEARANCE CLEAR; URINE BILIRUBIN NEGATIVE (NEGATIVE); URINE BLOOD NEGATIVE (NEGATIVE); URINE COLOR YELLOW; URINE GLUCOSE (UA) NEGATIVE (NEGATIVE); URINE KETONE NEGATIVE (NEGATIVE); URINE LEUKOCYTE ESTERASE NEGATIVE (NEGATIVE); URINE NITRITE NEGATIVE (NEGATIVE); URINE PROTEIN TRACE (NEGATIVE); URINE UROBILINOGEN 0.2 E.U./dL (0.20 - 1.00)
[2017-07-26] MEDS: DONEPEZIL HCL 5 MG TABLET PO SCH (23:09)
[2017-07-26] MEDS: LATANOPROST 0.005% OPTH SOLUTION 2.5ML BOTTLE OPTH SCH (23:09)
[2017-07-27] MEDS: PANTOPRAZOLE SODIUM 40 MG TABLET PO SCH ×2 (06:01→16:27)
[2017-07-27] MEDS: LEVOTHYROXINE SODIUM 75 MCG TABLET PO SCH (06:01)
--- NOTE | 2017-07-27 08:26 | Occupational Therapy Tx Note ---
Occupational Therapy Tx Note - Treatment Note Tolerated: Good Total Time Spent With Patient: 45 (ADL) Occupational Therapy Treatment Note: Detail (S: Pt resting in bed. O: Supine to sit Indly. Amb to toilet with HH assist. Toileted Indly. Doffed PJ bottoms , PJ top, briefs and slippers Indly. Pt completed showering with set up in sitting and standing. Pt required CG for standing and verbal cues to progress with showering. Pt dried self with verbal cues, donned bra with cues, shirt, briefs, pants, socks and shoes Indly. Pt amb to sink and completed oral hygiene and brushed hair Indly. Pt amb to chair with SBA. A: Balance and endurance significantly improved, cont. to require verbal cues for showering.) Occupational Therapy Problem List: Detail (1. Decreased cognition needed for Ind self cares 2. Decreased functional mobility 3. Decreased Ind with dressing 4. Decreased Ind with showering 5. Decreased UE strength and overall endurance needed for Ind self cares.) Occupational Therapy Goals: 1. Pt will be alert and oriented to place. 2. Pt will be Ind with total body dressing 3. Pt will complete showering with supervision and with set up 4. Pt will be Ind with bed mobility and ambulating in room to allow Ind with self cares 5. Pt will improve endurance to allow Ind with self cares. Prognosis: Good Occupational Therapy Plan: OT 2-4 days per week to address cognition, UE function, endurance, self care activities and functional mobility to allow safe return home with family.
[2017-07-27] MEDS: FERROUS SULFATE 325 MG TAB PO SCH (09:11)
--- NOTE | 2017-07-27 13:50 | Physical Therapy Tx Note ---
Physical Therapy Tx Note - Treatment Note Tolerated: Good Total Time Spent With Patient: 30 Physical Therapy Tx Note: Detail (The patient was in bed but awake when PT arrived. The patient was taken to PT department. The patient ambulated on 3 stairs with one railing x 1 and 2 railings x 1 with supervision for safety. The patient ambulated without device with CG of 1 for safety due to occasional stagger steps a distance of 102 feet x 1. The patient completed balance activities including standing with varying bases of support, standing of foam, standing and putting objects in and out of cupboard . The patient was returned to room via wheelchair and ambulated to chair in room. The patient required moderate PA at times with sit to stand.) Physical Therapy Problem List: Detail (1) Assistance with transfers and bed mobility. 2) nonambulatory 3) L knee pain 4) Cognitive status 5) sitting and standing balance deficits) Physical Therapy Goals: 1) The patient will acheive bed mobility with minimal PA to supervision. 2) Supervision with sit to stand transfer. 3) Ambulation without device 30 to 50 feet with supervision of 1. 4) Functional sitting and standing balance ie: Patient will acheive ADL's with out LOB when sitting and ambulate household distances without LOB. Physical Therapy Plan: PT M-F 1 to 2 times a day for bed mobility, transfer training, gait training and balance exercies.
[2017-07-27] MEDS: DONEPEZIL HCL 5 MG TABLET PO SCH (22:31)
[2017-07-27] MEDS: LATANOPROST 0.005% OPTH SOLUTION 2.5ML BOTTLE OPTH SCH (22:31)
[2017-07-28] MEDS: PANTOPRAZOLE SODIUM 40 MG TABLET PO SCH ×2 (07:33→18:39)
[2017-07-28] MEDS: LEVOTHYROXINE SODIUM 75 MCG TABLET PO SCH (07:33)
--- NOTE | 2017-07-28 09:53 | Physical Therapy Tx Note ---
Physical Therapy Tx Note - Treatment Note Tolerated: Good Total Time Spent With Patient: 30 Physical Therapy Tx Note: Detail (The patient was awake and in her recliner when PT arrived. The patient ambulated with standard walker a distance of 100 feet x 1 with CG and verbal cues to place walker properly. The patient ambulated on 3 steps with use of 2 railings with CG for safety. LE strengthening exercises seate: LAQ, hip marching, hip adductor squeezes, hip abduction with red theraband all x 10 reps. Patient was fatigued following treatment and said she had enough. The patient was returned to room and ambulated with standard walker to bed with CG. The patient was left with Nursing staff.) Physical Therapy Problem List: Detail (1) Assistance with transfers and bed mobility. 2) nonambulatory 3) L knee pain 4) Cognitive status 5) sitting and standing balance deficits) Physical Therapy Goals: 1) The patient will acheive bed mobility with minimal PA to supervision. 2) Supervision with sit to stand transfer. 3) Ambulation without device 30 to 50 feet with supervision of 1. 4) Functional sitting and standing balance ie: Patient will acheive ADL's with out LOB when sitting and ambulate household distances without LOB. Physical Therapy Plan: PT M-F 1 to 2 times a day for bed mobility, transfer training, gait training and balance exercies.
[2017-07-28] MEDS: FERROUS SULFATE 325 MG TAB PO SCH (11:21)
[2017-07-28] MEDS: DONEPEZIL HCL 5 MG TABLET PO SCH (23:48)
[2017-07-28] MEDS: LATANOPROST 0.005% OPTH SOLUTION 2.5ML BOTTLE OPTH SCH (23:48)
[2017-07-29] MEDS: LEVOTHYROXINE SODIUM 75 MCG TABLET PO SCH (06:50)
[2017-07-29] MEDS: PANTOPRAZOLE SODIUM 40 MG TABLET PO SCH ×2 (06:50→16:32)
[2017-07-29] MEDS: FERROUS SULFATE 325 MG TAB PO SCH (09:07)
--- NOTE | 2017-07-29 10:27 | Physical Therapy Tx Note ---
Physical Therapy Tx Note - Treatment Note Tolerated: Good Total Time Spent With Patient: 30 Physical Therapy Tx Note: Detail (The patient was up in chair sleeping when PT arrived but easily arroused. The patient ambulated without assistive device with supervision for safety 165 feet x 1, 100 feet x 1. Less stagger steps were noted. The patient completed the following LE strengthening exercises seated: with yellow T-band LAQ, hip abduction and hip abductor squeezes all x 20 reps, standing holding onto walker 20 squats, hip abduction x20 reps, kicks x 20 reps and standing with varying bases of support with perturbations.) Physical Therapy Problem List: Detail (1) Assistance with transfers and bed mobility. 2) nonambulatory 3) L knee pain 4) Cognitive status 5) sitting and standing balance deficits) Physical Therapy Goals: 1) The patient will acheive bed mobility with minimal PA to supervision. 2) Supervision with sit to stand transfer. 3) Ambulation without device 30 to 50 feet with supervision of 1. 4) Functional sitting and standing balance ie: Patient will acheive ADL's with out LOB when sitting and ambulate household distances without LOB. Physical Therapy Plan: PT M-F 1 to 2 times a day for bed mobility, transfer training, gait training and balance exercies.
--- NOTE | 2017-07-29 14:47 | Physical Therapy Tx Note ---
Physical Therapy Tx Note - Treatment Note Tolerated: Good Total Time Spent With Patient: 30 Physical Therapy Tx Note: Detail (Patient was seated in chair sleeping when HEEL SEAT FLAP STAPLER arrived. Patient transferred sit to and from stand CGA x1. Patient ambulated 326 feet without assistive device CGA/SBA x1 for safety. Patient performed the following exercises x10 reps each: seated hamstring curls with red theraband, seated hip abduction with red theraband, adductor squeeze with ball, LAQ, standing heel raises, standing toe raises, standing marching, standing hip abduction, standing hamstring curls, standing hip extension, and squats. Patient tolerated treatment well. Patient required several seated rest breaks with standing exercises. Patient displays decreased strength and endurance with standing exercises, hamstring curls with theraband, and seated hip abduction with theraband. Patient reports tired after treatment. Patient was left reclined in chair with chair alarm and call light within reach.) Physical Therapy Problem List: Detail (1) Assistance with transfers and bed mobility. 2) nonambulatory 3) L knee pain 4) Cognitive status 5) sitting and standing balance deficits) Physical Therapy Goals: 1) The patient will acheive bed mobility with minimal PA to supervision. 2) Supervision with sit to stand transfer. 3) Ambulation without device 30 to 50 feet with supervision of 1. 4) Functional sitting and standing balance ie: Patient will acheive ADL's with out LOB when sitting and ambulate household distances without LOB. Prognosis: Good Physical Therapy Plan: PT M-F 1 to 2 times a day for bed mobility, transfer training, gait training and balance exercies.
[2017-07-29] MEDS: DONEPEZIL HCL 5 MG TABLET PO SCH (22:26)
[2017-07-29] MEDS: LATANOPROST 0.005% OPTH SOLUTION 2.5ML BOTTLE OPTH SCH (22:26)
[2017-07-30] MEDS: PANTOPRAZOLE SODIUM 40 MG TABLET PO SCH ×2 (06:43→16:47)
[2017-07-30] MEDS: LEVOTHYROXINE SODIUM 75 MCG TABLET PO SCH (06:43)
[2017-07-30] MEDS: FERROUS SULFATE 325 MG TAB PO SCH (09:16)
[2017-07-30 09:49] LABS: BASO % 0.5 % (0-6); EOS % 1.4 % (0-6); GRAN % 70.8 % (47-80); HEMATOCRIT 32.2 % (35.0-47.0); HEMOGLOBIN 10.1 gm/dl (11.6-16.0); LYMPH % 20.5 % (16-45); MEAN CELL VOLUME 98.5 fl (81-97); MEAN CORPUSCULAR HGB CONC 31.4 g/dl (32-36); MEAN PLATELET VOLUME 8.8 fl (7.4-10.4); MONO % 6.8 % (0-9); PLATELET COUNT 567 K/uL (130-400); RED BLOOD COUNT 3.27 M/uL (3.80-5.40); RED CELL DISTRIBUTION WIDTH 15.4 % (11.5-14.5); WHITE BLOOD COUNT W/O DIFF 10.2 K/uL (4.2-12.2)
[2017-07-30 09:51] LABS: MEAN CORPUSCULAR HEMOGLOBIN 30.8 pg (27-33)
--- NOTE | 2017-07-30 11:34 | Physical Therapy Tx Note ---
Physical Therapy Tx Note - Treatment Note Tolerated: Good Total Time Spent With Patient: 40 Physical Therapy Tx Note: Detail (Patient was reclined in chair when PROCESSING SPECIALIST arrived. Patient transferred sit to and from stand CGA x1. Patient ambulated 450 feet without assistive device CGA x1. Patient performed the following exercises x10-15 reps each: seated marching, LAQ, hamstring curls with red theraband, seated hip abduction with red theraband, and isometric hip adduction. Patient transferred sit to and from stand CGA x1. Patient performed the following balance exercises x30 seconds each: feet together, feet together looking side to side, feet together looking up and down, and stride stance. Patient transferred sit to and from stand CGA x1. Patient ambulated 10 feet x2 without assistive device CGA x1. Patient transferred sit to and from stand CGA x1. Patient displays some loss of balance with ambulation. Patient reports tired after treatment. Patient was left reclined in chair with call light within reach.) Physical Therapy Problem List: Detail (1) Assistance with transfers and bed mobility. 2) nonambulatory 3) L knee pain 4) Cognitive status 5) sitting and standing balance deficits) Physical Therapy Goals: 1) The patient will acheive bed mobility with minimal PA to supervision. 2) Supervision with sit to stand transfer. 3) Ambulation without device 30 to 50 feet with supervision of 1. 4) Functional sitting and standing balance ie: Patient will acheive ADL's with out LOB when sitting and ambulate household distances without LOB. Prognosis: Good Physical Therapy Plan: PT M-F 1 to 2 times a day for bed mobility, transfer training, gait training and balance exercies.
--- NOTE | 2017-07-30 15:16 | Physical Therapy Tx Note ---
Physical Therapy Tx Note - Treatment Note Tolerated: Good Total Time Spent With Patient: 25 Physical Therapy Tx Note: Detail (Patient was reclined in chair when BULK PIGMENT REDUCER arrived. Patient transferred sit to and from stand x2 CGA x1 Patient performed the following exercises x10-15 reps each: seated marching, seated hip abduction with red theraband, seated isometric hip adduction, LAQ, hamstring curls with red theraband, standing heel raises, standing toe raises, standing marching, standing hip abduction, and standing hip extenison. Patient tolerated treatment well. Patient displays decreased strength and endurance with seated hamstring curls, standing heel raises, standing toe raises, standing marching, standing hip extension, and standing hip abduction. Patient required seated rest break with standing exercises. Patient reports a little tired after treatment. Patient was left reclined in chair with chair alarm and call light within reach.) Physical Therapy Problem List: Detail (1) Assistance with transfers and bed mobility. 2) nonambulatory 3) L knee pain 4) Cognitive status 5) sitting and standing balance deficits) Physical Therapy Goals: 1) The patient will acheive bed mobility with minimal PA to supervision. 2) Supervision with sit to stand transfer. 3) Ambulation without device 30 to 50 feet with supervision of 1. 4) Functional sitting and standing balance ie: Patient will acheive ADL's with out LOB when sitting and ambulate household distances without LOB. Prognosis: Good Physical Therapy Plan: PT M-F 1 to 2 times a day for bed mobility, transfer training, gait training and balance exercies.
[2017-07-30] MEDS: DONEPEZIL HCL 5 MG TABLET PO SCH (22:06)
[2017-07-30] MEDS: LATANOPROST 0.005% OPTH SOLUTION 2.5ML BOTTLE OPTH SCH (22:07)
[2017-07-31] MEDS: PANTOPRAZOLE SODIUM 40 MG TABLET PO SCH (06:52)
[2017-07-31] MEDS: LEVOTHYROXINE SODIUM 75 MCG TABLET PO SCH (06:52)
[2017-07-31] MEDS ORDERED: PANTOPRAZOLE SODIUM 40 MG TABLET PO SCH (07:00)
--- NOTE | 2017-07-31 07:36 | Discharge Summary ---
Providers Discharge Summary Date: 07/30/17 Date of admission: 07/15/17 14:02 Expected Date of Discharge: 07/31/17 Attending physician: Josesito Daniels Primary care physician: CHRIS VIRGEN D.O. Physical Exam - Vital Signs Vital Signs: Vital Signs - Last 24 Hrs Temp Pulse Resp BP BP BP Pulse Ox 07/31/17 06:00 97.8 F 77 16 156/60 99 07/30/17 19:34 98.9 F 75 18 144/71 98 07/30/17 14:00 98.7 F 76 18 101/52 96 07/30/17 10:56 97.5 F L 108/59 - General General Appearance: Alert, Cooperative, No acute distress - Head Head exam: Normal inspection - Eye Eye exam: Normal appearance, PERRL - ENT ENT exam: Normal exam, Mucous membranes moist, Normal external ear exam, Normal orophraynx, TM's normal bilaterally Ear exam: Normal external inspection. negative: External canal tenderness Nasal Exam: Normal inspection. negative: Discharge, Sinus tenderness Mouth exam: Normal external inspection, Tongue normal Teeth exam: Normal inspection. negative: Dental caries Throat exam: Normal inspection. negative: Tonsillar erythema, Tonsillar exudate - Neck Neck exam: Normal inspection, Full ROM. negative: Tenderness - Respiratory Respiratory exam: Normal lung sounds bilaterally. negative: Respiratory distress - Cardiovascular Cardiovascular Exam: Regular rate, Normal rhythm, Normal heart sounds - GI/Abdominal GI/Abdominal exam: Soft, Normal bowel sounds. negative: Tenderness - exam: Deferred - Extremities Extremities exam: Joint swelling (left knee,warm but not red), Tenderness (left knee) - Back Back exam: Reports: Normal inspection, Full ROM. Denies: Muscle spasm, Rash noted, Tenderness - Neurological Neurological exam: Abnormal gait (because of left knee pain) - Psychiatric Psychiatric exam: Normal affect, Normal mood - Skin Skin exam: Dry, Intact, Normal color, Warm, Other (left knee warm and painful with motion) Hospitalization - Hospitalization Admission Diagnosis: 1. deconditioning d/t gastric ulcer and upper GI bleed. fever. painful left knee. left knee effusion. UTI. dementia. DNR. Pseudogout of left knee. history of hypothyroidism - Problem List (1) Physical deconditioning Current Visit: Yes Status: Acute Base Code: R53.81 - OTHER MALAISE (2) Pseudogout Current Visit: Yes Status: Acute Base Code: M11.20 - OTHER CHONDROCALCINOSIS , UNSPECIFIED SITE Narrative Support Text: left knee Onset Date: ~07/15/17 (3) UTI (urinary tract infection) Current Visit: Yes Status: Acute Base Code: N39.0 - URINARY TRACT INFECTION , SITE NOT SPECIFIED (4) Hypothyroidism Current Visit: Yes Status: Acute Base Code: E03.9 - HYPOTHYROIDISM, UNSPECIFIED (5) Dementia Current Visit: Yes Status: Acute Base Code: F03.90 - UNSPECIFIED DEMENTIA WITHOUT BEHAVIORAL DISTURBANCE (6) DNR (do not resuscitate) Current Visit: Yes Status: Acute Base Code: Z66 - DO NOT RESUSCITATE (7) Gastrointestinal bleeding, upper Current Visit: Yes Status: Acute Base Code: K92.2 - GASTROINTESTINAL HEMORRHAGE, UNSPECIFIED (8) Gastric ulcer Current Visit: Yes Status: Acute Base Code: K25.9 - GASTRIC ULCER, UNSP ACUTE OR CHRONIC, W/O HEMOR OR PERF - Disposition discharge to home with daughter Alice - Hospitalization Course Disposition: Home, Self-Care Reason For Discharge/Transfer: Medical Stability Hospital Course: Patient gradually improved and she will need one more month of iron and adding vit c 1000 mg per day will help the iron absorb better. Procedures: arthrocentesis of knee Abnormal Labs: Abnormal Lab Results 07/15/17 07/15/17 07/15/17 Range/Units 15:50 15:50 17:25 WBC 15.3 H (4.2-12.2) K/uL RBC 2.85 L (3.80-5.40) M/uL Hgb 8.9 L (11.6-16.0) gm/dl Hct 27.3 L (35.0-47.0) % MCV (81-97) fl MCHC (32-36) g/dl RDW 15.1 H (11.5-14.5) % Plt Count (130-400) K/uL Monocytes % (0-9) % Chloride (98-107) mmol/L Anion Gap 6.2 L (7-16) BUN 18 H (7-17) mg/dL Creatinine 1.1 H (0.52-1.04) mg/dL Iron (37-145) ug/dL C-Reactive Protein 2.8 H (0.0-0.9) mg/dL Urine Protein (NEGATIVE) Ur Leukocyte Esterase (NEGATIVE) Synovial WBC 34419.0 H (0-0) /uL 07/16/17 07/21/17 07/23/17 Range/Units 17:00 08:15 06:18 WBC (4.2-12.2) K/uL RBC 2.90 L (3.80-5.40) M/uL Hgb 8.9 L (11.6-16.0) gm/dl Hct 28.3 L (35.0-47.0) % MCV 97.6 H (81-97) fl MCHC 31.4 L (32-36) g/dl RDW (11.5-14.5) % Plt Count 557 H (130-400) K/uL Monocytes % 9.3 H (0-9) % Chloride 108 H (98-107) mmol/L Anion Gap (7-16) BUN 22 H (7-17) mg/dL Creatinine 1.2 H (0.52-1.04) mg/dL Iron (37-145) ug/dL C-Reactive Protein (0.0-0.9) mg/dL Urine Protein 30 mg/dl H (NEGATIVE) Ur Leukocyte Esterase Trace H (NEGATIVE) Synovial WBC (0-0) /uL 07/26/17 07/30/17 07/30/17 Range/Units 15:00 09:31 09:31 WBC (4.2-12.2) K/uL RBC 3.27 L (3.80-5.40) M/uL Hgb 10.1 L (11.6-16.0) gm/dl Hct 32.2 L (35.0-47.0) % MCV 98.5 H (81-97) fl MCHC 31.4 L (32-36) g/dl RDW 15.4 H (11.5-14.5) % Plt Count 567 H (130-400) K/uL Monocytes % (0-9) % Chloride (98-107) mmol/L Anion Gap (7-16) BUN (7-17) mg/dL Creatinine (0.52-1.04) mg/dL Iron 36 L (37-145) ug/dL C-Reactive Protein (0.0-0.9) mg/dL Urine Protein Trace H (NEGATIVE) Ur Leukocyte Esterase (NEGATIVE) Synovial WBC (0-0) /uL Condition at Discharge: (1) Good Discharge Diagnosis: Deconditioning secondary to GI Bleed. UTI resolved. Pseudogout of knee improved. Dementia. anemia secondary GI bleed improving with iron. Gastric ulcerr and will need protonix BID for 6 weeks and than can drop this back to once a week. history of hypothyroidism Discharge Medications - Discharge Medications Prescriptions: Pantoprazole Sodium [Protonix] 40 mg PO BIDAC #60 Home Medications: Ambulatory Orders Donepezil HCl [Aricept] 23 mg PO QHS 07/15/17 [Last Taken Unknown] Ferrous Sulfate 325 mg PO DAILY 07/15/17 [Last Taken Unknown] Levothyroxine Sodium [Synthroid] 75 mcg PO DAILYTHY 07/15/17 [Last Taken Unknown ] Pantoprazole Sodium 40 mg PO BIDAC 07/15/17 [Last Taken Unknown] Travoprost Opth [Travatan Z Opth] 1 drop OPTH QHS 07/15/17 [Last Taken Unknown] Acetaminophen [Tylenol 325Mg] 650 mg PO Q6H PRN 07/31/17 [Last Taken Unknown] Bisacodyl [Dulcolax] 5 mg PO Q8H PRN 07/31/17 [Last Taken Unknown] Docusate Sodium [Colace] 100 mg PO BID PRN cap 07/31/17 [Last Taken Unknown] Latanoprost 0.005% Opth Kim [Xalatan] 1 drop OPTH QHS 07/31/17 [Last Taken Unknown] Levothyroxine Sodium [Synthroid] 75 mcg PO DAILYTHY 07/31/17 [Last Taken Unknown ] Pantoprazole Sodium [Protonix] 40 mg PO BIDAC #60 07/31/17 [Last Taken Unknown] Discharge Plan - Discharge Instructions Activity at Discharge: Ambulate Only With Your Walker Diet at Discharge: Regular Diet Additional Instructions: follow up with Dr. Virgen her primary Dr in 1-2 weeks
--- NOTE | 2017-07-31 09:22 | Rehab Discharge Summary ---
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 She has a tub/shower combination with a bench, grab bar and hand held shower. She was able to shower and dress with supervision and was Ind with making her bed. She did have increased difficulty in the evenings due to "sundowners". Family is responsible for all home mgmt, meal prep, laundry activities. She was ambulatory without an assistive device.) Social History: Detail (Supportive family present during evaluation, daughters Berkley and Akilah and son in law Zaki.) Precautions: [place], Fall, Other (decreased cognition) - Time With Patient Total Time Spent With Patient (Min): 20 Treatment Procedures: Detail (Re-evaluation, gait training.) Subjective Information - Subjective Information Per Patient (The patient denies pain.) Objective Data - Mental Status Patient Orientation: Person - ROM Within normal limits (The patient's LE AROM is WFL) - Strength/Tone Within normal limits (The patient's LE strength is generally 4+ to 5/5) - Bed Mobility Independent (The patient is independent/supervision with supine to and from sit transfer( supervision due to cognitive status).) - Transfers Independent (The patient is independent with sit to and from stand transfer and requires supervision for safety only with toilet transfer.) - Balance Balance Sitting: Good Balance Standing: Fair (The patient is able to stand without support and walk without assistive device. The patient occasionally exhibits loss of balance but is able to right herself with stepping response. The patient does exhibit a decreased posterior balance reaction.) - Gait Detail (The patient ambulated a distance of 150 feet plus without device with CG /supervision for safety due to occasional stagger steps and LOB. The patient also ambulates with standard walker with verbal cues for proper technique and supervison for safety. The patient ambulated on 3 steps with use of railing with CG/supervision for safety.) Therapy Assessment - Therapy Assessment Detail (The patient has improved balance and mobility. The patient requires supervison for safety due to mental status. Recommend Home PT.) Problem List - Problem List Physical Therapy Problem List: Detail (1) Assistance with transfers and bed mobility. 2) nonambulatory 3) L knee pain 4) Cognitive status 5) sitting and standing balance deficits) Occupational Therapy Problem List: Detail (1. Decreased cognition needed for Ind self cares 2. Decreased functional mobility 3. Decreased Ind with dressing 4. Decreased Ind with showering 5. Decreased UE strength and overall endurance needed for Ind self cares.) Goals - Goals Physical Therapy Goals: GOALS MET: 1) The patient will acheive bed mobility with minimal PA to supervision. 2) Supervision with sit to stand transfer. 3) Ambulation without device 30 to 50 feet with supervision of 1. 4) Functional sitting and standing balance ie: Patient will acheive ADL's with out LOB when sitting and ambulate household distances without LOB. Occupational Therapy Goals: 1. Pt will be alert and oriented to place. 2. Pt will be Ind with total body dressing 3. Pt will complete showering with supervision and with set up 4. Pt will be Ind with bed mobility and ambulating in room to allow Ind with self cares 5. Pt will improve endurance to allow Ind with self cares. Plan - Plan Physical Therapy Plan: The patient is discharging to home and is to receive home PT services. Occupational Therapy Plan: OT 2-4 days per week to address cognition, UE function, endurance, self care activities and functional mobility to allow safe return home with family.
--- NOTE | 2017-07-31 10:06 | Rehab Discharge Summary ---
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 She has a tub/shower combination with a bench, grab bar and hand held shower. She was able to shower and dress with supervision and was Ind with making her bed. She did have increased difficulty in the evenings due to "sundowners". Family is responsible for all home mgmt, meal prep, laundry activities. She was ambulatory without an assistive device.) Social History: Detail (Supportive family present during evaluation, daughters Berkley and Akilah and son in law Zaki.) Precautions: [place], Fall, Other (decreased cognition) Objective Data - Pain Pain Present: No - Mental Status Patient Orientation: Person - Visual Perception Appears within normal limits for therapeutic activities (Pt wears glasses, no functional visual impairments observed.) - ROM Within normal limits (Syed UE AROM WNL) - Strength/Tone Within normal limits (Syed UE MMT 4+/5 throughout) - Coordination Appears within normal limits for therapeutic activities - Bed Mobility Independent - Transfers Independent (Supervision for safety) - Balance Balance Sitting: Good Balance Standing: Fair - Sensation Intact - Gait Detail (Pt ambulating household distances without assistive device, recommend SBA for safety.) - ADL's/IADL's Detail (Pt is Ind with dressing, requires verbal cues for showering in sitting and standing to remain on task and recommend SBA for safety with standing.) Therapy Assessment - Therapy Assessment Detail (Pt is able to complete self cares with SBA/verbal cueing due to decreased cognition/memory.) Problem List - Problem List Physical Therapy Problem List: Detail (1) Assistance with transfers and bed mobility. 2) nonambulatory 3) L knee pain 4) Cognitive status 5) sitting and standing balance deficits) Occupational Therapy Problem List: Detail (1. Decreased cognition needed for Ind self cares 2. Decreased functional mobility 3. Decreased Ind with dressing 4. Decreased Ind with showering 5. Decreased UE strength and overall endurance needed for Ind self cares.) Goals - Goals Physical Therapy Goals: 1) The patient will acheive bed mobility with minimal PA to supervision. 2) Supervision with sit to stand transfer. 3) Ambulation without device 30 to 50 feet with supervision of 1. 4) Functional sitting and standing balance ie: Patient will acheive ADL's with out LOB when sitting and ambulate household distances without LOB. Occupational Therapy Goals: Goals partially met: 1. Pt will be alert and oriented to place. 3. Pt will complete showering with supervision and with set up 4. Pt will be Ind with bed mobility and ambulating in room to allow Ind with self cares. Goals Met: 2. Pt will be Ind with total body dressing 5. Pt will improve endurance to allow Ind with self cares. Prognosis - Prognosis Good Plan - Plan Physical Therapy Plan: PT M-F 1 to 2 times a day for bed mobility, transfer training, gait training and balance exercies. Occupational Therapy Plan: Pt discharging home with daughter and home OT/PT.
[2017-07-31] MEDS: FERROUS SULFATE 325 MG TAB PO SCH (10:10)
--- NOTE | 2017-08-04 14:10 | Discharge Summary ---
DATE: 07/30/2017 DATE OF DISCHARGE: 07/31/2017 DISCHARGE DIAGNOSES: 1. Deconditioning secondary to GI bleed and hospitalization at [facility], weakness. 2. Urinary tract infection which has resolved. 3. Gastric ulcer diagnosed at [facility] with an EGD and requiring 1-2 units of blood. 4. Dementia. 5. Hypothyroidism. 6. Pseudogout of the left knee. 7. Anemia secondary to GI bleed and deconditioning and chronic disease and on iron therapy. 8. Glaucoma. ATTENDING PHYSICIAN: Josesito Daniels DO REASON FOR HOSPITALIZATION: This 86-year-old female was admitted to [facility] for GI bleed. Had an EGD done which showed a gastric ulcer. She was transfused with 1-2 units of blood. See the discharge summary from [facility]. It looks like 2 units of blood. EGD showed a clean gastric ulcer in the antrum of the stomach. She was transferred to our swing bed unit for rehabilitation, deconditioning, and weakness. Upon her arrival to [facility] Swing bed, she was discovered to have a fever, a left knee effusion, very painful joint to move, and confused because of her dementia. After initial assessment and evaluation, she had a urine obtained, CBC, cultures. Because of her swollen, painful left knee, I did an arthrocentesis of the left knee which revealed cloudy fluid, yellow, and 20 mL were removed. I will further discuss this in the procedure part of this note. The patient was given 1 shot of Depo-Medrol and pseudogout crystals were found in the fluid. No signs of infection. Cultures were negative. SIGNIFICANT FINDINGS: In this hospitalization in the swing bed program, the first initial CBC was WBC 15,300, hemoglobin 8.9. Potassium was 3.9, BUN 18, creatinine 1.1. Her C-reactive protein was 2.8. The fluid in the left knee showed 12,384 WBCs, RBCs were 27, segs were 90%, lymphs were 10%, synovial crystals were present which were pseudogout, calcium pyrophosphate intracellular crystals were present. Culture was obtained of the knee. We put a catheter in to get a urine but she did not have any urine in her bladder. It took a while to get a urine and they only got a small amount. They set up a urine culture at that time. Urine culture was positive for Aerococcus urinae greater than 100,000 units and E coli with only less than 10,000 units. Sensitive to Cipro. She was placed on Cipro 500 twice a day, which resolved her urinary tract infection. The culture of the fluid from the knee with no growth. Gram stain showed 20-30 WBCs. The calcium pyrophosphate intracellular crystals present. Further laboratory analysis before discharge: We will obtain a CBC and a serum iron to decide how long the iron therapy should continue. Her most recent set of labs showing WBC 8600, hemoglobin 8.9 still, potassium 4.0, BUN 22, creatinine 1.2. Urine is clear. Lipids are in the normal range. PROCEDURE PERFORMED: Arthrocentesis of the left knee. The area was anesthetized with a small amount of 1% lidocaine. Sterilely removed a total of 20 mL of cloudy yellow synovial fluid. Analyzed in the lab to show crystals of calcium intracellular pyrophosphate. Also, her WBC count in the synovial fluid was 12,384. RBCs were 27. Gram stain negative. Crystals were present, 90% neutrophils and 10% lymphocytes. On discussion with Dr. Lovett, the orthopedic surgeon, he felt treatment would probably be benefited by one shot of Depo-Medrol. Because of her recent GI bleed, we opted not to use nonsteroidal anti-inflammatory medications. This helped her tremendously. Her knee function improved dramatically after the shot and removal of the fluid. HOSPITAL COURSE: She has gradually improved. CONDITION ON DISCHARGE: Improved. We will recheck her CBC and serum iron today and then adjust her therapy tomorrow. DISCHARGE INSTRUCTIONS: Follow up with Dr. Mejia in approximately 1 week. Continue her home medications of Travatan ophthalmologic 1 drop at bedtime both eyes, Protonix 40 mg b.i.d., Synthroid 75 mcg daily, Aricept 5 mg daily. The ferrous sulfate will be decided on after serum iron comes back. She should continue the Protonix b.i.d. for 6 weeks to allow the gastric ulcer to heal and then most likely stay on it the rest of her life at 40 mg a day. Tylenol p.r.n. Colace p.r.n. Dulcolax p.r.n. CC: Dr. Roberto YUN
== END 2017-07-31 13:00 | disposition home or self-care (01) | DRG 948 ==
LOC: MEDSURG 14:02
PROVIDERS: ADMIT Emergency Medicine; ATTEND Emergency Medicine
PROC: 0S9D3ZZ Drainage of Left Knee Joint, Percutaneous Approach (ICD-10-PCS; principal; 2017-07-15)
DX: R53.1 Weakness (principal); N39.0 Urinary tract infection, site not specified; F05 Delirium due to known physiological condition; M25.462 Effusion, left knee; M11.262 Other chondrocalcinosis, left knee; B96.20 Unspecified Escherichia coli [E. coli] as the cause of diseases classified elsewhere; K25.9 Gastric ulcer, unspecified as acute or chronic, without hemorrhage or perforation; E03.9 Hypothyroidism, unspecified; D63.8 Anemia in other chronic diseases classified elsewhere; H40.9 Unspecified glaucoma
CPT/HCPCS: 80048; 80053; 80061; 81001; 81003; 82310; 83540; 84443; 85025; 86140; 87070; 87205; 89051; 89060; 97110; 97116; 97166; 97530; 97535; 99306; J1040